=== PATIENT | male | born 1995 | race African-American/Black ===

== ENCOUNTER 2022-09-16 21:05 | Emergency (ER) | payer OTHER ==
[~2022-09-16] VITALS: Ht 180.3 cm; Wt 75.0 kg
[2022-09-16 22:40] VITALS: BP 124/80
[2022-09-17] MEDS ORDERED: IBUP-2028 PO (08:57)
== END 2022-09-17 01:27 | disposition home or self-care (01) ==
LOC: ER 21:05
DX: F41.1 Generalized anxiety disorder (principal); Z59.00 Homelessness unspecified
CPT/HCPCS: 99281

== ENCOUNTER 2022-09-17 06:35 | Emergency (ER) | payer OTHER ==
[~2022-09-17] VITALS: Ht 180.3 cm; Wt 73.0 kg
[2022-09-17] MEDS ORDERED: IBUPROFEN 800MG TABLET PO ONE (07:45)
[2022-09-17] MEDS ORDERED: METOCLOPRAMIDE HCL 10MG TABLET PO ONE (07:45)
[2022-09-17] MEDS ORDERED: IBUPROFEN 400MG TABLET PO NR (08:15)
[2022-09-17] MEDS ORDERED: IBUP-2028 PO (08:57)
[2022-09-17 09:17] VITALS: BP 106/68
== END 2022-09-17 09:18 | disposition home or self-care (01) ==
LOC: ER 06:35
DX: R51.9 Headache, unspecified (principal)
CPT/HCPCS: 99283; J8597